=== PATIENT | female | born 1950 | race Caucasian/White ===

== ENCOUNTER → 2016-10-21 12:53 | Outpatient (CLI) | payer MEDICARE, OTHER ==
[2012-09-10 16:15] VITALS: BMI 28.9
== END | disposition home or self-care (01) ==
LOC: D.RAD 10-18 13:00
DX: R13.12 Dysphagia, oropharyngeal phase (principal)

== ENCOUNTER 2018-06-08 13:35 | Emergency (ER) | payer MEDICARE, OTHER ==
[~2018-06-08] VITALS: Ht 157.5 cm; Wt 67.3 kg
[2018-06-08 13:46] VITALS: Ht 157.5 cm; Wt 67.3 kg
[2018-06-08] MEDS ORDERED: PROZAC10 MG PO (13:48)
[2018-06-08] MEDS ORDERED: LIPITOR20 MG PO ×2 (13:49→13:51)
[2018-06-08] MEDS ORDERED: VITAMIN D5000 UNIT PO (13:49)
[2018-06-08] MEDS ORDERED: MAXZIDE 75/501 TAB PO (13:49)
[2018-06-08] MEDS ORDERED: PREMARIN0.45 MG PO (13:50)
[2018-06-08] MEDS ORDERED: EVISTA60 MG PO (13:50)
[2018-06-08 14:46] LABS: BASOPHILS 0.3 % (0-2); EOSINOPHILS 0.8 % (0-7); HEMATOCRIT 51.6 % (36.0-48.0); HEMOGLOBIN 17.7 g/dL (12-16); IMMATURE GRANULOCYTES 0.3 % (0-5); LYMPHOCYTES 16.7 % (15-50); MCH 30.5 pg (26.0-34.0); MCHC 34.3 g/dL (31.0-37.0); MCV 88.8 fL (80.0-100.0); MEAN PLATELET VOLUME 10.3 fL (7.4-10.4); MONOCYTES 4.7 % (2-11); NEUTROPHILS 77.2 % (40-80); PLATELET COUNT 295 10x3/uL (130-400); RBC 5.81 10x6/uL (4.00-5.40); RDW 13.5 % (11.5-14.5); WBC 14.6 10x3/uL (4.8-10.8)
[2018-06-08 15:20] LABS: ALBUMIN 4.2 g/dL (3.4-5.0); ANION GAP 15.7 mmol/L (8-16); BILIRUBIN - TOTAL 0.45 mg/dL (0.2-1.3); CALCIUM 9.7 mg/dL (8.5-10.1); CARBON DIOXIDE 25.7 mmol/L (21.0-32.0); CREATININE - SERUM 1.5 mg/dL (0.6-1.3); POTASSIUM - SERUM 4.4 mmol/L (3.5-5.1); PROTEIN - SERUM 8.2 g/dL (6.4-8.2)
[2018-06-08 15:34] LABS: APPEARANCE HAZY (CLEAR); BILIRUBIN NEGATIVE (NEGATIVE); COLOR YELLOW (YELLOW); GLUCOSE NEGATIVE (NEGATIVE); KETONE NEGATIVE (NEGATIVE); NITRITE NEGATIVE (NEGATIVE); PROTEIN TRACE mg/dL (NEGATIVE); UROBILINOGEN NORMAL (NORMAL)
[2018-06-08 17:11] VITALS: BP 146/56
== END 2018-06-08 18:14 | disposition home or self-care (01) ==
LOC: D.ER 13:35
PROVIDERS: Emergency Medicine
DX: R55 Syncope and collapse (principal); I10 Essential (primary) hypertension; E86.0 Dehydration; F17.200 Nicotine dependence, unspecified, uncomplicated